=== PATIENT | female | born 1935 | race Asian ===

== ENCOUNTER 2016-11-28 09:48 | Emergency (ER) | payer MEDICARE, OTHER ==
[2016-11-28] MEDS ORDERED: ACETAMINOPHEN 325 MG TABLET PO ONE (10:18)
[2016-11-28] MEDS ORDERED: DIPH/PERTUSS(ACELL)/TETANUS VAC/PF 0.5 ML SYR (>=10YO) IM ONE (10:18)
--- NOTE | 2016-11-28 10:20 | ER Document Report ---
ED Medical Screen (RME) - General Chief Complaint: Fall Injury Stated Complaint: HEAD PAIN Time seen by provider: 10:16 Mode of Arrival: Ambulatory Information source: Patient Notes: 81-year-old female tripped on a curb hit her left face, nose and forehead causing a contusion and lacerations this am. She is complaining of neck pain and headache. does Not take anticoagulants. Consulted with Dr. Gutierrez for the CT scans. - Related Data Allergies/Adverse Reactions: aspirin [Aspirin] Adverse Reaction (Mild, Verified 11/28/16 10:14) dizzy codeine [Codeine] Adverse Reaction (Mild, Verified 11/28/16 10:14) n/v Past Medical History - Past Medical History Cardiac Medical History: Reports: Hx Hypertension Denies: Hx Coronary Artery Disease, Hx Heart Attack Pulmonary Medical History: Denies: Hx Asthma, Hx Bronchitis, Hx COPD, Hx Pneumonia Neurological Medical History: Denies: Hx Cerebrovascular Accident, Hx Seizures GI Medical History: Denies: Hx Hepatitis, Hx Hiatal Hernia, Hx Ulcer Musculoskeltal Medical History: Reports Hx Arthritis Infectious Medical History: Denies: Hx Hepatitis Past Surgical History: Reports: Hx Hysterectomy. Denies: Hx Mastectomy, Hx Open Heart Surgery, Hx Pacemaker - Immunizations Hx Diphtheria, Pertussis, Tetanus Vaccination: Yes - unsure
[2016-11-28] MEDS ORDERED: LIDOCAINE 1%/EPINEPHRINE INJ 20 ML VIAL INJ ONE (12:06)
--- NOTE | 2016-11-28 12:14 | ER Document Report ---
ED Fall - General Mode of Arrival: Ambulatory Information source: Patient TRAVEL OUTSIDE OF THE [place] IN LAST 30 DAYS: No - HPI Patient complains to provider of: Laceration to the forehead Occurred: Just prior to arrival Where: Outdoors Context: Tripped Associated symptoms: Other - see above. denies: Lost consciousness Location of injury/pain: Other - see above <VINCENZO SEGURA - Last Filed: 11/28/16 12:09> <MARY GALLARDO - Last Filed: 11/28/16 14:13> - General Chief Complaint: Fall Injury Stated Complaint: HEAD PAIN Notes: 81 year old female with history of hypertension and hyperlipidemia presents to the ED after tripping on a concrete parking block and hitting her head just prior to arrival. Patient denies loss of consciousness. Patient's surgical history includes a hysterectomy and appendectomy done over 40 years ago. (VINCENZO SEGURA) - Related data Allergies/Adverse Reactions: aspirin [Aspirin] Adverse Reaction (Mild, Verified 11/28/16 10:14) dizzy codeine [Codeine] Adverse Reaction (Mild, Verified 11/28/16 10:14) n/v Past Medical History - General Information source: Patient - Social History Smoking Status: Never Smoker Chew tobacco use (# tins/day): No Frequency of alcohol use: None Drug Abuse: None Family History: Reviewed & Not Pertinent Patient has suicidal ideation: No Patient has homicidal ideation: No - Past Medical History Cardiac Medical History: Reports: Hx Hypertension Musculoskeltal Medical History: Reports Hx Arthritis Past Surgical History: Reports: Hx Appendectomy, Hx Hysterectomy - Immunizations Hx Diphtheria, Pertussis, Tetanus Vaccination: Yes - unsure <VINCENZO SEGURA - Last Filed: 11/28/16 12:09> Review of Systems - Review of Systems Constitutional: No symptoms reported EENT: No symptoms reported Cardiovascular: No symptoms reported Respiratory: No symptoms reported Gastrointestinal: No symptoms reported Genitourinary: No symptoms reported Female Genitourinary: No symptoms reported Musculoskeletal: No symptoms reported Skin: See HPI, Other - Laceration to the left forehead and skin tear under the left eye Hematologic/Lymphatic: No symptoms reported Neurological/Psychological: No symptoms reported. denies: Lost consciousness -: Yes All other systems reviewed and negative <VINCENZO SEGURA - Last Filed: 11/28/16 12:09> Physical Exam - General General appearance: Alert In distress: None - HEENT Head: Other - 1.5 cm laceration to the left forehead and a skin abrasion underneath the left eye.. No: Normocephalic, Atraumatic Eyes: Normal Extraocular movements intact: Yes Pupils: PERRL - Respiratory Respiratory status: No respiratory distress Breath sounds: Normal - Cardiovascular Rhythm: Regular - Abdominal Inspection: Normal - Back Back: Normal - Extremities General upper extremity: Normal inspection, Normal ROM General lower extremity: Normal inspection, Normal ROM - Neurological Neuro grossly intact: Yes - Psychological Associated symptoms: Normal affect, Normal mood - Skin Skin Temperature: Warm Skin Moisture: Dry Skin Color: Normal <VINCENZO SEGURA - Last Filed: 11/28/16 12:09> - HEENT Head: Open wounds - There is a irregular 2 cm vertical crush injury laceration to the left forehead. Just below that but above the eyebrow is a similar half centimeter laceration. Under the left eyelid there is a 1.25 centimeter avulsion type laceration running horizontally below the eye lashes and does not appear to involve the lacrimal duct. <MARY GALLARDO - Last Filed: 11/28/16 14:13> - Vital signs Vitals: Temp Pulse Resp BP Pulse Ox 97.9 F 84 16 155/61 H 99 11/28/16 10:15 11/28/16 10:15 11/28/16 10:15 11/28/16 10:15 11/28/16 10:15 (VINCENZO SEGURA) (MARY GALLARDO) Course <VINCENZO SEGURA - Last Filed: 11/28/16 12:09> <MARY GALLARDO - Last Filed: 11/28/16 14:13> - Re-evaluation Re-evalutation: 11/28/16 14:11 PROCEEDURE: The 3 left sided facial wounds were prepped with chlorhexidine. There were anesthetized with a total of 4 males 1% lidocaine with epinephrine. The upper forehead wound was irrigated with 20 mL's of normal saline, slightly debrided, and closed with 4 4-0 nylon sutures. The lower forehead wound was irrigated with 10 mL normal saline, and closed with a single 4-0 nylon suture. The The transverse avulsion laceration under the lower eyelid, was approximated using 4 6-0 nylon sutures. (MARY GALLARDO) - Vital Signs Vital signs: Temp Pulse Resp BP Pulse Ox 98.3 F 92 18 169/77 H 95 11/28/16 13:46 11/28/16 13:46 11/28/16 13:46 11/28/16 13:46 11/28/16 13:46 (VINCENZO SEGURA) (MARY GALLARDO) Discharge <VINCENZO SEGURA - Last Filed: 11/28/16 12:09> <MARY GALLARDO - Last Filed: 11/28/16 14:13> - Discharge Clinical Impression: Fall Qualifiers: Encounter type: initial encounter Qualified Code(s): W19.XXXA - Unspecified fall, initial encounter Facial contusion Qualifiers: Encounter type: initial encounter Qualified Code(s): S00.83XA - Contusion of other part of head, initial encounter Facial laceration Qualifiers: Encounter type: initial encounter Qualified Code(s): S01.81XA - Laceration without foreign body of other part of head, initial encounter Condition: Stable Disposition: HOME, SELF-CARE Additional Instructions: Facial Laceration: A laceration on the face usually heals quickly. Our treatment goal will be to avoid an unsightly scar or stitch-hartley. Your cut has been closed with the best techniques to avoid scarring, but a great deal depends on how well you protect the laceration -- and on your inherited tendency to scar. As facial cuts are usually caused by a blunt injury, it's usually best to rest for a day to avoid swelling. Do not allow any bumping or rubbing of the area. Keep the stitches dry. Follow the treatment plan the doctor has discussed with you and DO NOT DELAY getting the stitches out. Once stitches are removed, continue to protect the area from trauma and sunlight (use a sunscreen) for about six months. If any signs of infection occur (swelling, redness, increasing tenderness, red streaks, tender lumps in the neck or near the ear on the side of the laceration, or fever), see the doctor immediately. KEEP THE WOUNDS CLEAN AND COVERED WITH NEOSPORIN OR BACITRACIN OINTMENT. USE ICE-PACKS TODAY TO REDUCE SWELLING. RETURN TO THE EMERGENCY ROOM WEDNESDAY FOR SUTURE REMOVAL. TAKE TYLENOL FOR PAIN IF NEEDED. RETURN TO THE EMERGENCY ROOM IF ANY NEW OR WORSENING SYMPTOMS. Referrals: WENDY PALOMINO MD [Primary Care Provider] - Follow up as needed Scribe Attestation: 11/28/16 13:40 I personally performed the services described in the documentation, reviewed and edited the documentation which was dictated to the scribe in my presence, and it accurately records my words and actions. (MARY GALLARDO) Scribe Documentation - Scribe Written by Kym:: Kym Cruz, 11/28/2016 12:14 acting as scribe for :: All <VINCENZO SEGURA - Last Filed: 11/28/16 12:09>
[2016-11-28 13:48] VITALS: BP 169/77
== END 2016-11-28 13:46 | disposition home or self-care (01) ==
LOC: ER 09:48
PROC: 0HQ1XZZ Repair Face Skin, External Approach (ICD-10-PCS; principal; 2016-11-28)
DX: S01.81XA Laceration without foreign body of other part of head, initial encounter (principal); S00.83XA Contusion of other part of head, initial encounter; W01.198A Fall on same level from slipping, tripping and stumbling with subsequent striking against other object, initial encounter; E78.00 Pure hypercholesterolemia, unspecified; I10 Essential (primary) hypertension; Z88.6 Allergy status to analgesic agent; Z90.710 Acquired absence of both cervix and uterus; Z23 Encounter for immunization
CPT/HCPCS: 99284; 90471; 70450; 70486; 72125; 90715; 12013; A9270; J3490

== ENCOUNTER 2016-12-04 08:30 | Emergency (ER) | payer MEDICARE, OTHER ==
--- NOTE | 2016-12-04 08:55 | ER Document Report ---
ED Suture/Wound Recheck - General Mode of Arrival: Ambulatory Information source: Patient TRAVEL OUTSIDE OF THE [place] IN LAST 30 DAYS: No - HPI Patient complains to provider of: Suture Removal Treated in ED (days ago): 6 - 11/28/2016 Previous ED treatment: Laceration repair Context: Injury - Fall Symptoms since procedure: No complaints - General Chief Complaint: Suture Removal Stated Complaint: SUTURE REMOVAL Notes: Patient is an 81-year-old female presenting to the emergency department for suture removal. Patient was seen here last week on 11/28/2016 when she fell and hit her head. Patient has no new complaints and states that she feels that her wounds are healing well. (IVAN BLOOM) - Related Data Allergies/Adverse Reactions: aspirin [Aspirin] Adverse Reaction (Mild, Verified 12/04/16 08:45) dizzy codeine [Codeine] Adverse Reaction (Mild, Verified 12/04/16 08:45) n/v Past Medical History - General Information source: Patient - Social History Smoking Status: Current Every Day Smoker Chew tobacco use (# tins/day): No Frequency of alcohol use: Social Drug Abuse: None Family History: Reviewed & Not Pertinent Patient has suicidal ideation: No Patient has homicidal ideation: No - Past Medical History Cardiac Medical History: Reports: Hx Hypercholesterolemia, Hx Hypertension Denies: Hx Coronary Artery Disease, Hx Heart Attack Pulmonary Medical History: Denies: Hx COPD GI Medical History: Denies: Hx Ulcer Musculoskeltal Medical History: Reports Hx Arthritis Infectious Medical History: Denies: Hx Hepatitis Past Surgical History: Reports: Hx Appendectomy, Hx Hysterectomy. Denies: Hx Mastectomy, Hx Open Heart Surgery, Hx Pacemaker - Immunizations Hx Diphtheria, Pertussis, Tetanus Vaccination: Yes - unsure Review of Systems - Review of Systems Constitutional: No symptoms reported EENT: No symptoms reported Cardiovascular: No symptoms reported Respiratory: No symptoms reported Gastrointestinal: No symptoms reported Genitourinary: No symptoms reported Female Genitourinary: No symptoms reported Musculoskeletal: No symptoms reported Skin: No symptoms reported Hematologic/Lymphatic: No symptoms reported Neurological/Psychological: No symptoms reported -: Yes All other systems reviewed and negative Physical Exam - General General appearance: Appears well, Alert - HEENT Head: Normocephalic, Other - All wounds are closed with sutures and healing well : There is a irregular 2 cm vertical crush injury laceration to the left forehead. Just below that but above the eyebrow is a similar half centimeter laceration. Under the left eyelid there is a 1.25 centimeter avulsion type laceration running horizontally below the eye lashes and does not appear to involve the lacrimal duct. Eyes: Normal Pupils: PERRL - Respiratory Respiratory status: No respiratory distress - Cardiovascular Rhythm: Regular - Abdominal Inspection: Normal - Back Back: Normal - Extremities General upper extremity: Normal inspection General lower extremity: Normal inspection - Neurological Neuro grossly intact: Yes Cognition: Normal Elsa Coma Scale Eye Opening: Spontaneous [place] Coma Scale Verbal: Oriented [place] Coma Scale Motor: Obeys Commands Elsa Coma Scale Total: 15 Speech: Normal - Psychological Associated symptoms: Normal affect, Normal mood - Skin Skin Temperature: Warm Skin Moisture: Dry Skin Color: Normal - Vital signs Vitals: Temp Pulse Resp BP Pulse Ox 98.7 F 82 16 139/60 H 99 12/04/16 08:43 12/04/16 08:43 12/04/16 08:43 12/04/16 08:43 12/04/16 08:43 (MARY GALLARDO) (IVAN BLOOM) Discharge - Discharge Clinical Impression: Visit for suture removal Disposition: HOME, SELF-CARE Additional Instructions: RETURN IF ANY PROBLEMS. Scribe Attestation: 12/04/16 08:57 I personally performed the services described in the documentation, reviewed and edited the documentation which was dictated to the scribe in my presence, and it accurately records my words and actions. (MARY GALLARDO) Scribe Documentation - Scribe Written by Scrandrei:: Ivan Bloom 12/04/2016 0855 acting as scribe for :: All
[2016-12-04 09:33] VITALS: BP 104/63
== END 2016-12-04 09:34 | disposition home or self-care (01) ==
LOC: ER 08:30
DX: S01.81XD Laceration without foreign body of other part of head, subsequent encounter (principal); X58.XXXD Exposure to other specified factors, subsequent encounter; F17.200 Nicotine dependence, unspecified, uncomplicated; I10 Essential (primary) hypertension

== ENCOUNTER 2017-05-18 03:58 | Emergency (ER) | payer MEDICARE, OTHER ==
--- NOTE | 2017-05-18 05:01 | ER Document Report ---
Doctor's Note Notes: 05/18/17 05:00 I performed a quick triage evaluation the patient. Patient is a pleasant 81- year-old female who presents with complaint of right-sided chest pain. She also some pain into her right shoulder. History is mainly given by the who is at bedside. Patient had a fall Wednesday night. She has some scrapes from the fall. She was not having pain until this morning around 2 AM when she started complaining of pain in the right side of her chest. thinks it is related to fall being that it is over the area of the right side where she fell; however, she did not start having pain until now therefore I will order some cardiac labs. Initial EKG does not show any acute concerning changes. On exam patient does have some pain to palpation of the right-sided rib cage. There is no bruising or swelling to the rib cage. Patient does have some abrasions to the right elbow. I will x-ray the elbow as well.
[2017-05-18 05:36] LABS: ABSOLUTE LYMPHOCYTES (AUTO) 0.7 10^3/uL (0.5-4.7); ABSOLUTE MONOCYTES (AUTO) 0.5 10^3/uL (0.1-1.4); ABSOLUTE NEUT (AUTO) 6.6 10^3/uL (1.7-8.2); BASOPHILS % (AUTO) 0.5 % (0-2); EOSINOPHILS % (AUTO) 0.6 % (0-6); HEMATOCRIT 50.2 % (36.0-47.0); HEMOGLOBIN 16.8 g/dL (12.0-15.5); HGB HCT DIFFERENCE 0.2; LYMPHOCYTES % (AUTO) 8.5 % (13-45); MEAN CORPUSCULAR HGB CONC 33.5 g/dL (32.0-36.0); MEAN CORPUSCULAR VOLUME 95 fl (80-97); MONOCYTES % (AUTO) 6.1 % (3-13); RED BLOOD COUNT 5.26 10^6/uL (3.72-5.28); RED CELL DISTRIBUTION WIDTH 14.1 % (11.5-14.0); SEGMENTED NEUTROPHILS % (AUTO) 84.3 % (42-78); WHITE BLOOD COUNT 7.8 10^3/uL (4.0-10.5)
[2017-05-18 05:53] LABS: ALANINE AMINOTRANSFERASE 26 U/L (9-52); ALBUMIN 4.2 g/dL (3.5-5.0); ALKALINE PHOSPHATASE 68 U/L (38-126); ANION GAP 11 (5-19); ASPARTATE AMINO TRANSFERASE 46 U/L (14-36); BILIRUBIN,DIRECT 0.4 mg/dL (0.0-0.4); BILIRUBIN,TOTAL 0.9 mg/dL (0.2-1.3); BLOOD UREA NITROGEN 14 mg/dL (7-20); CALCIUM 9.2 mg/dL (8.4-10.2); CARBON DIOXIDE 24 mmol/L (22-30); CHLORIDE 90 mmol/L (98-107); CREATINE KINASE 100 U/L (30-135); CREATININE RESULT 0.54 mg/dL (0.52-1.25); GLUCOSE 122 mg/dL (75-110); POTASSIUM 3.4 mmol/L (3.6-5.0); SODIUM 124.6 mmol/L (137-145)
[2017-05-18 06:05] LABS: CREATINE KINASE MB 1.17 ng/mL (<4.55)
[2017-05-18 06:06] LABS: TROPONIN I < 0.012 ng/mL
--- NOTE | 2017-05-18 06:21 | RADIOLOGY REPORT (SQ) ---
EXAM DESCRIPTION: ELBOW RIGHT AP/LAT COMPLETED DATE/TIME: 05/18/2017 6:06 am REASON FOR STUDY: trauma COMPARISON: None. NUMBER OF VIEWS: Four views. TECHNIQUE: AP, lateral, and both oblique radiographic images acquired of the right elbow. LIMITATIONS: None. FINDINGS: MINERALIZATION: Normal. BONES: Transverse lucency without cortical disruption and without displacement of the distal humerus may indicate in nondisplaced fracture or artifact. Small osteophyte of the coronoid process of the r ight ulnar olecranon. Moderate swelling -edema and posterior to the right distal humerus. JOINT: No effusion. SOFT TISSUES: No soft tissue swelling. No foreign body. OTHER: No other significant finding. IMPRESSION: Possible nondisplaced fracture of the right distal humerus. Consider CT or MRI correlat ion as clinically warranted. TECHNICAL DOCUMENTATION: JOB ID: [id number] [employer]- All Rights Reserved
--- NOTE | 2017-05-18 06:25 | RADIOLOGY REPORT (SQ) ---
EXAM DESCRIPTION: RIBS RIGHT W/PA CHEST COMPLETED DATE/TIME: 05/18/2017 6:06 am REASON FOR STUDY: trauma COMPARISON: None. TECHNIQUE: Frontal view of the chest and additional views of the right ribs acquired. NUMBER OF VIEWS: Four view. LIMITATIONS: None. FINDINGS: FRONTAL CXR: No pneumothorax. No pleural effusion. No atelectasis or infiltrates. RIBS: No displaced rib fractures. No lytic or blastic bony lesions. Mild deformity of the right 2nd posterolateral rib. OTHER: Atherosclerosis. Mild interstitial markings. Minimal left basilar atelectasis or scar. Mild vertebral height loss of multiple mid and lower thoracic levels. IMPRESSION: NO PNEUMOTHORAX. NO DISPLACED RIB FRACTURES. COMMENT: SITE OF TRAUMA/COMPLAINT MARKED/STAMP COMPLETED: YES. TECHNICAL DOCUMENTATION: JOB ID: [id number] [employer]- All Rights Reserved
[2017-05-18] MEDS ORDERED: NORMAL SALINE 500 ML IV ONE (06:35)
[2017-05-18] MEDS ORDERED: LIDOCAINE 5% (700 MG) TRANSDERMAL ADH..PATCH TP ONE (06:35)
--- NOTE | 2017-05-18 08:53 | RADIOLOGY REPORT (SQ) ---
EXAM DESCRIPTION: CT RT UPPER EXTREMITY WITHOUT COMPLETED DATE/TIME: 05/18/2017 8:23 am REASON FOR STUDY: eval findings on elbow xray COMPARISON: X-ray dated 05/18/2017. TECHNIQUE: Axial imaging performed through the right elbow with reformatted coronal and sagittal leonila ging windowed for bone and soft tissues. Images saved to PACS. 3D IMAGING: Were 3D images as MIP, SSD, or volume rendering performed at the work station? Yes. All CT scanners at this facility use dose modulation, iterative reconstruction, and/or weight based d osing when appropriate to reduce radiation dose to as low as reasonably achievable (ALARA). [facility]: Dose Right [facility]: CareDose [facility]: Dose Right [facility]: Teradose 4D [facility]: [employer] LIMITATIONS: None. RADIATION DOSE: Up-to-date CT equipment and radiation dose reduction techniques were employed. CTDIv ol: 2.6 mGy. DLP: 48 mGy-cm. mGy. FINDINGS: SOFT TISSUES: No obvious swelling or foreign body. BONES: No acute fracture. No dislocation. MINERALIZATION: Normal. OTHER: No other significant finding. IMPRESSION: NO ACUTE OR SIGNIFICANT FINDING. FINDING ON THE PREVIOUS X-RAY IS ARTIFACT DUE TO OVERL APPING STRUCTURES. TECHNICAL DOCUMENTATION: JOB ID: [id number] Quality ID # [id number]: Final reports with documentation of one or more dose reduction techniques (e.g., Au tomated exposure control, adjustment of the mA and/or kV according to patient size, use of iterative reconstruction technique) 2010 [employer]- All Rights Reserved
[2017-05-18 09:24] VITALS: BP 143/67
[2017-05-18 09:30] LABS: ANION GAP 10 (5-19); BLOOD UREA NITROGEN 12 mg/dL (7-20); CALCIUM 8.7 mg/dL (8.4-10.2); CARBON DIOXIDE 24 mmol/L (22-30); CHLORIDE 91 mmol/L (98-107); CREATININE RESULT 0.48 mg/dL (0.52-1.25); GLUCOSE 113 mg/dL (75-110); POTASSIUM 3.6 mmol/L (3.6-5.0); SODIUM 124.8 mmol/L (137-145)
--- NOTE | 2017-05-18 09:44 | ER Document Report ---
ED General - General Chief Complaint: Chest Pain Stated Complaint: FALL/CHEST PAIN Time Seen by Provider: 05/18/17 04:59 TRAVEL OUTSIDE OF THE [place] IN LAST 30 DAYS: No - HPI Patient complains to provider of: Right sided chest pain Notes: Patient coming in for evaluation of right-sided chest pain elbow pain. Patient had a fall Wednesday prior to arrival. Patient states this was a mechanical fall and tripped over her feet but no loss of consciousness no head trauma patient does not have any pain until earlier this morning in the right side of the chest. Patient also does have multiple small abrasions to right upper extremities are covered by Band-Aids. Denies any changes or pain associated with these. Patient at this time denies any elbow pain patient also denies any chest pain patient is resting comfortably no signs of obvious distress. Denies fevers chills nausea vomiting diarrhea abdominal pain - Related Data Allergies/Adverse Reactions: aspirin [Aspirin] Adverse Reaction (Mild, Verified 12/04/16 08:45) dizzy codeine [Codeine] Adverse Reaction (Mild, Verified 12/04/16 08:45) n/v Past Medical History - Social History Smoking Status: Unknown if Ever Smoked Frequency of alcohol use: None Drug Abuse: None Family History: Reviewed & Not Pertinent Patient has suicidal ideation: No Patient has homicidal ideation: No - Past Medical History Cardiac Medical History: Reports: Hx Hypercholesterolemia, Hx Hypertension Denies: Hx Coronary Artery Disease, Hx Heart Attack Pulmonary Medical History: Denies: Hx Asthma, Hx Bronchitis, Hx COPD, Hx Pneumonia Neurological Medical History: Denies: Hx Cerebrovascular Accident, Hx Seizures Renal/ Medical History: Denies: Hx Peritoneal Dialysis GI Medical History: Denies: Hx Hepatitis, Hx Hiatal Hernia, Hx Ulcer Musculoskeltal Medical History: Reports Hx Arthritis Infectious Medical History: Denies: Hx Hepatitis Past Surgical History: Reports: Hx Appendectomy, Hx Hysterectomy. Denies: Hx Mastectomy, Hx Open Heart Surgery, Hx Pacemaker - Immunizations Hx Diphtheria, Pertussis, Tetanus Vaccination: Yes - unsure Review of Systems - Review of Systems Constitutional: No symptoms reported EENT: No symptoms reported Cardiovascular: Chest pain - Right-sided Respiratory: No symptoms reported Gastrointestinal: No symptoms reported Genitourinary: No symptoms reported Female Genitourinary: No symptoms reported Musculoskeletal: Other - Elbow pain Skin: No symptoms reported Hematologic/Lymphatic: No symptoms reported Neurological/Psychological: No symptoms reported Physical Exam - Vital signs Vitals: Temp Pulse Resp BP Pulse Ox 98 F 80 18 154/58 H 94 05/18/17 04:00 05/18/17 04:00 05/18/17 04:00 05/18/17 04:00 05/18/17 04:00 Interpretation: Normal - General General appearance: Appears well, Alert - HEENT Head: Normocephalic, Atraumatic Eyes: Normal Pupils: PERRL - Respiratory Respiratory status: No respiratory distress Chest status: Tender - Tenderness to palpation of the right upper chest reproduces patient's pain. Breath sounds: Normal Chest palpation: Normal - Cardiovascular Rhythm: Regular Heart sounds: Normal auscultation Murmur: No - Abdominal Inspection: Normal Distension: No distension Bowel sounds: Normal Tenderness: Nontender Organomegaly: No organomegaly - Back Back: Normal, Nontender - Extremities General upper extremity: Normal inspection, Nontender, Normal color, Normal ROM , Normal temperature, Other - Patient with multiple skin tears of the right olecranon process no signs of infection. General lower extremity: Normal inspection, Nontender, Normal color, Normal ROM , Normal temperature, Normal weight bearing. No: Briseida's sign - Neurological Neuro grossly intact: Yes Cognition: Normal Orientation: AAOx4 [place] Coma Scale Eye Opening: Spontaneous Elsa Coma Scale Verbal: Oriented [place] Coma Scale Motor: Obeys Commands Elsa Coma Scale Total: 15 Speech: Normal Motor strength normal: LUE, RUE, LLE, RLE Sensory: Normal - Psychological Associated symptoms: Normal affect, Normal mood - Skin Skin Temperature: Warm Skin Moisture: Dry Skin Color: Normal Course - Re-evaluation Re-evalutation: 05/18/17 09:44 Patient does admit to drinking alcohol just prior to arrival. Patient's sodium is 124. Patient was given some normal saline with a slight increase in her sodium. Otherwise patient able to ambulate at this time does not seem to be symptomatic. 05/18/17 09:45 05/18/17 10:24 The patient has atypical chest pain as the patient's chest pain is not suggestive of pulmonary embolus, cardiac ischemia, aortic dissection, or other serious etiology. Given the extremely low risk of these diagnoses further testing and evaluation for these possibilities does not appear to be indicated at this time. The patient has been instructed to return if the symptoms worsen or change in any way. - Vital Signs Vital signs: Temp Pulse Resp BP Pulse Ox 98.1 F 80 20 143/67 H 96 05/18/17 04:01 05/18/17 04:01 05/18/17 10:00 05/18/17 08:45 05/18/17 10:00 - Laboratory Result Diagrams: 05/18/17 05:14 05/18/17 08:38 Laboratory results interpreted by me: 05/18/17 05/18/17 05/18/17 05:14 05:14 08:38 Hgb 16.8 H Hct 50.2 H RDW 14.1 H Seg Neutrophils % 84.3 H Lymphocytes % 8.5 L Sodium 124.6 L 124.8 L Potassium 3.4 L Chloride 90 L 91 L Creatinine 0.48 L Glucose 122 H 113 H AST 46 H Discharge - Discharge Clinical Impression: Chest wall contusion Qualifiers: Encounter type: initial encounter Laterality: right Qualified Code(s): S20.211A - Contusion of right front wall of thorax, initial encounter Skin tear of right elbow without complication Qualifiers: Encounter type: initial encounter Qualified Code(s): S51.011A - Laceration without foreign body of right elbow, initial encounter Condition: Good Disposition: HOME, SELF-CARE Instructions: Chest Wall Pain ([facility]), Skin Tear ([facility]) Additional Instructions: Your lab work today does show a low sodium. At this time he does not seem to have any symptoms because a low sodium would recommend to limit your alcohol consumption and to eat a normal healthy diet. Return to the ER for any concerning issues follow-up with your doctor as needed. Referrals: WENDY PALOMINO MD [Primary Care Provider] - Follow up as needed
--- NOTE | 2017-05-18 19:06 | EKG REPORT ---
SEVERITY:- ABNORMAL ECG - SINUS RHYTHM PROBABLE LEFT ATRIAL ABNORMALITY NONSPECIFIC T ABNORMALITIES, ANTERIOR LEADS : Confirmed by: Avelino Parks MD 18-May-2017 19:05:50
== END 2017-05-18 10:11 | disposition home or self-care (01) ==
LOC: ER 03:58
DX: S20.211A Contusion of right front wall of thorax, initial encounter (principal); S51.011A Laceration without foreign body of right elbow, initial encounter; W01.0XXA Fall on same level from slipping, tripping and stumbling without subsequent striking against object, initial encounter; E78.00 Pure hypercholesterolemia, unspecified; I10 Essential (primary) hypertension; Z90.710 Acquired absence of both cervix and uterus; Z88.6 Allergy status to analgesic agent
CPT/HCPCS: 93005; 99285; 96360; 36415; 82553; 82550; 85025; 80048; 80053; 84484; 73070; 71101; 73200; 93010; J7040

== ENCOUNTER 2018-01-07 10:22 | Inpatient (IN) | payer MEDICARE, OTHER ==
--- NOTE | 2018-01-07 12:00 | ER Document Report ---
ED Medical Screen (RME) - General Mode of Arrival: Wheelchair Information source: Relative TRAVEL OUTSIDE OF THE [place] IN LAST 30 DAYS: No <FRANCO SAMUELS - Last Filed: 01/07/18 11:58> <MARJORIE ANDERSON - Last Filed: 01/07/18 14:15> - General Chief Complaint: Low Blood Pressure Stated Complaint: LOW BLOOD PRESSURE Time Seen by Provider: 01/07/18 11:50 Notes: 82-year-old female brought in by EMS because of low blood pressure in the setting of a recent infection. EMS got a blood pressure of 120/80. Patient is accompanied by her states that she does have a history of hypertension and some dementia. She states that she has been getting progressive weakness and has not ambulated since mid November. She was evaluated by her primary care physician (Dr. Devries) yesterday who put her on an antibiotic for cough and chest congestion. Home health aid checked her this morning and found a blood pressure in the 80s and EMS was called. (FRANCO SAMUELS) - Related Data Allergies/Adverse Reactions: aspirin [Aspirin] Adverse Reaction (Mild, Verified 01/07/18 11:46) dizzy codeine [Codeine] Adverse Reaction (Mild, Verified 01/07/18 11:46) n/v Past Medical History - Social History Chew tobacco use (# tins/day): No Frequency of alcohol use: None Drug Abuse: None - Past Medical History Cardiac Medical History: Reports: Hx Hypercholesterolemia, Hx Hypertension Denies: Hx Coronary Artery Disease, Hx Heart Attack Pulmonary Medical History: Denies: Hx Asthma, Hx Bronchitis, Hx COPD, Hx Pneumonia Neurological Medical History: Denies: Hx Cerebrovascular Accident, Hx Seizures Renal/ Medical History: Denies: Hx Peritoneal Dialysis GI Medical History: Denies: Hx Hepatitis, Hx Hiatal Hernia, Hx Ulcer Musculoskeltal Medical History: Reports Hx Arthritis Infectious Medical History: Denies: Hx Hepatitis Past Surgical History: Reports: Hx Appendectomy, Hx Hysterectomy. Denies: Hx Mastectomy, Hx Open Heart Surgery, Hx Pacemaker - Immunizations Hx Diphtheria, Pertussis, Tetanus Vaccination: Yes - unsure <FRANCO SAMUELS - Last Filed: 01/07/18 11:58> - Vital signs Vitals: Temp Pulse Resp BP Pulse Ox 98.9 F 99 24 H 115/52 L 94 01/07/18 10:34 01/07/18 10:34 01/07/18 10:34 01/07/18 10:34 01/07/18 10:34 Course - Laboratory Result Diagrams: 01/07/18 13:46 01/07/18 13:46 <MARJORIE ANDERSON - Last Filed: 01/07/18 14:15> - Vital Signs Vital signs: Temp Pulse Resp BP Pulse Ox 98.9 F 99 24 H 115/52 L 94 01/07/18 10:34 01/07/18 10:34 01/07/18 10:34 01/07/18 10:34 01/07/18 10:34 - Laboratory Laboratory results interpreted by me: 01/07/18 01/07/18 13:46 13:46 WBC 13.4 H Hgb 11.7 L Hct 35.5 L RDW 16.7 H Plt Count 529 H Chloride 108 H Carbon Dioxide 21 L BUN 21 H Est GFR (Non-Af Amer) 51 L Glucose 134 H Direct Bilirubin 0.5 H
--- NOTE | 2018-01-07 13:01 | RADIOLOGY REPORT (SQ) ---
EXAM DESCRIPTION: CHEST SINGLE VIEW COMPLETED DATE/TIME: 01/07/2018 12:50 pm REASON FOR STUDY: weakness COMPARISON: March 2008 EXAM PARAMETERS: NUMBER OF VIEWS: One view. TECHNIQUE: Single frontal radiographic view of the chest acquired. RADIATION DOSE: NA LIMITATIONS: None. FINDINGS: LUNGS AND PLEURA: No opacities, masses or pneumothorax. No pleural effusion. MEDIASTINUM AND HILAR STRUCTURES: There is some prominence of the superior mediastinum which may be i n part related to the lordotic projection. HEART AND VASCULAR STRUCTURES: Cardiac silhouette is mildly enlarged. Tortuous calcified thoracic ao rta is identified. BONES: No acute findings. HARDWARE: None in the chest. OTHER: No other significant finding. IMPRESSION: NO ACUTE RADIOGRAPHIC FINDING IN THE CHEST. TECHNICAL DOCUMENTATION: JOB ID: [id number] [employer]- All Rights Reserved Reading location - IP/workstation name: [email or web address]
[2018-01-07 13:55] LABS: HEMATOCRIT 35.5 % (36.0-47.0); HEMOGLOBIN 11.7 g/dL (12.0-15.5); MEAN CORPUSCULAR HEMOGLOBIN 31.1 pg (27.0-33.4); MEAN CORPUSCULAR HGB CONC 33.1 g/dL (32.0-36.0); MEAN CORPUSCULAR VOLUME 94 fl (80-97); PLATELET COUNT 529 10^3/uL (150-450); RED BLOOD COUNT 3.77 10^6/uL (3.72-5.28); RED CELL DISTRIBUTION WIDTH 16.7 % (11.5-14.0); WHITE BLOOD COUNT 13.4 10^3/uL (4.0-10.5)
[2018-01-07 14:10] LABS: ALANINE AMINOTRANSFERASE 32 U/L (9-52); ALBUMIN 3.7 g/dL (3.5-5.0); ALKALINE PHOSPHATASE 79 U/L (38-126); ANION GAP 10 (5-19); ASPARTATE AMINO TRANSFERASE 22 U/L (14-36); BILIRUBIN,DIRECT 0.5 mg/dL (0.0-0.4); BILIRUBIN,TOTAL 0.5 mg/dL (0.2-1.3); BLOOD UREA NITROGEN 21 mg/dL (7-20); CALCIUM 9.4 mg/dL (8.4-10.2); CARBON DIOXIDE 21 mmol/L (22-30); CHLORIDE 108 mmol/L (98-107); GLUCOSE 134 mg/dL (75-110); POTASSIUM 4.6 mmol/L (3.6-5.0); TOTAL PROTEIN 7.4 g/dL (6.3-8.2)
[2018-01-07] MEDS ORDERED: RINGERS SOLUTION,LACTATED 1,000 ML IV ONE (14:14)
[2018-01-07 14:20] LABS: ABSOLUTE LYMPHOCYTES# (MANUAL) 2.3 10^3/uL (0.5-4.7); ABSOLUTE MONOCYTES # (MANUAL) 0.8 10^3/uL (0.1-1.4); ABSOLUTE NEUTROPHILS# (MANUAL) 10.2 10^3/uL (1.7-8.2); BAND NEUTROPHILS % (MANUAL) 2 % (3-5); BASOPHILS % (MANUAL) 0 % (0-2); EOSINOPHILS % (MANUAL) 1 % (0-6); LYMPHOCYTES % (MANUAL) 17 % (13-45); METAMYELOCYTES % (MANUAL) 1 % (0); MONOCYTES % (MANUAL) 6 % (3-13); SEGMENTED NEUTROPHILS % (MAN) 72 % (42-78); TOTAL CELLS COUNTED 100
[2018-01-07 14:22] LABS: PLATELET COMMENT INCREASED; TOXIC GRANULATION 1+; TOXIC VACUOLATION PRESENT
[2018-01-07 14:22] LABS: APPEARANCE,URINE SLIGHTLY-CLOUDY; BILIRUBIN,URINE NEGATIVE (NEGATIVE); COLOR,URINE YELLOW; GLUCOSE, URINE NEGATIVE (NEGATIVE); KETONES,URINE NEGATIVE (NEGATIVE); LEUKOCYTE ESTERASE,URINE LARGE (NEGATIVE); NITRITE,URINE NEGATIVE (NEGATIVE); PROTEIN,URINE 100 mg/dL (NEGATIVE); URINE SPECIFIC GRAVITY 1.013; UROBILINOGEN,URINE NEGATIVE mg/dL (<2.0)
[2018-01-07 14:23] LABS: ANISOCYTOSIS 1+; HYPOCHROMASIA SLIGHT
[2018-01-07 14:29] LABS: MYELOCYTES % (MANUAL) 1 % (0)
[2018-01-07] MEDS ORDERED: CEFTRIAXONE 1 GM/D5W RTU 1 GM/50 ML RTUPB IV ONE (14:44)
--- NOTE | 2018-01-07 14:44 | ER Document Report ---
ED General - General Chief Complaint: Low Blood Pressure Stated Complaint: LOW BLOOD PRESSURE Time Seen by Provider: 01/07/18 11:50 Mode of Arrival: Wheelchair Notes: 82-year-old female to the emergency department for evaluation of persistent weakness, questionable pneumonia, questionable hypotension. Apparently was diagnosed with pneumonia clinically. Started on antibiotics. Continue to have increased weakness. Questionable hypotension at home. Sent to the emergency department for evaluation. Patient denies any complaints at this time. Patient taken care of by her . TRAVEL OUTSIDE OF THE [place] IN LAST 30 DAYS: No - HPI Onset: Yesterday Onset/Duration: Gradual, Worse - Related Data Allergies/Adverse Reactions: aspirin [Aspirin] Adverse Reaction (Mild, Verified 01/07/18 11:46) dizzy codeine [Codeine] Adverse Reaction (Mild, Verified 01/07/18 11:46) n/v Past Medical History - General Information source: Relative - Social History Smoking Status: Unknown if Ever Smoked Chew tobacco use (# tins/day): No Frequency of alcohol use: None Drug Abuse: None Lives with: Spouse/Significant other Family History: Reviewed & Not Pertinent Patient has suicidal ideation: No Patient has homicidal ideation: No - Past Medical History Cardiac Medical History: Reports: Hx Hypercholesterolemia, Hx Hypertension Denies: Hx Coronary Artery Disease, Hx Heart Attack Pulmonary Medical History: Denies: Hx Asthma, Hx Bronchitis, Hx COPD, Hx Pneumonia Neurological Medical History: Denies: Hx Cerebrovascular Accident, Hx Seizures Renal/ Medical History: Denies: Hx Peritoneal Dialysis GI Medical History: Denies: Hx Hepatitis, Hx Hiatal Hernia, Hx Ulcer Musculoskeltal Medical History: Reports Hx Arthritis Infectious Medical History: Denies: Hx Hepatitis Past Surgical History: Reports: Hx Appendectomy, Hx Hysterectomy. Denies: Hx Mastectomy, Hx Open Heart Surgery, Hx Pacemaker - Immunizations Hx Diphtheria, Pertussis, Tetanus Vaccination: Yes - unsure Review of Systems - Review of Systems Constitutional: Malaise, Weakness. denies: Fever EENT: No symptoms reported Cardiovascular: Palpitations, Other - Hypotension Respiratory: Cough. denies: Hemoptysis, Short of breath, Wheezing Gastrointestinal: denies: Abdominal pain, Diarrhea, Nausea, Vomiting Musculoskeletal: denies: Back pain, Joint pain, Muscle pain Skin: Dryness. denies: Lesions, Rash Hematologic/Lymphatic: denies: Anemia, Blood clots, Easy bleeding, Easy bruising Neurological/Psychological: Confusion, Dementia, Weakness. denies: Depression, Numbness Physical Exam - Vital signs Vitals: Temp Pulse Resp BP Pulse Ox 98.9 F 99 24 H 115/52 L 94 01/07/18 10:34 01/07/18 10:34 01/07/18 10:34 01/07/18 10:34 01/07/18 10:34 Interpretation: Normal - General General appearance: Appears well, Alert - HEENT Head: Normocephalic, Atraumatic Eyes: Normal Pupils: PERRL Mucous membranes: Dry - Respiratory Respiratory status: No respiratory distress Chest status: Nontender Breath sounds: Nonproductive cough Chest palpation: Normal - Cardiovascular Rhythm: Regular Heart sounds: Normal auscultation Murmur: No - Abdominal Inspection: Normal Distension: No distension Bowel sounds: Normal Tenderness: Nontender Organomegaly: No organomegaly - Back Back: Normal, Nontender - Extremities General upper extremity: Normal inspection, Nontender, Normal color, Normal ROM , Normal temperature General lower extremity: Normal inspection, Nontender, Normal color, Normal ROM , Normal temperature, Normal weight bearing. No: Briseida's sign - Neurological Neuro grossly intact: Yes Cognition: Confused, Short term memory loss Elsa Coma Scale Eye Opening: Spontaneous Elsa Coma Scale Verbal: Confused Barney Coma Scale Motor: Obeys Commands Elsa Coma Scale Total: 14 Speech: Normal Motor strength normal: LUE, RUE, LLE, RLE Sensory: Normal - Psychological Associated symptoms: Normal affect, Normal mood - Skin Skin Temperature: Warm Skin Moisture: Dry Skin Color: Normal Course - Re-evaluation Re-evalutation: 01/07/18 14:49 Patient with possible pneumonia based on physical exam as determined by her primary care provider. Was started on Levaquin but uncertain whether or not patient actually got a dose yet. Does have a mild UTI. Will culture. Is pretty dehydrated with a slightly elevated WBC count. Will hydrate, give IV antibiotics. Consulted Dr. Wendy Palomino MD. Will admit to the [facility] floor at this time for hydration, antibiotics, treatment of UTI and reassessment. - Vital Signs Vital signs: Temp Pulse Resp BP Pulse Ox 98.9 F 99 24 H 115/52 L 94 01/07/18 10:34 01/07/18 10:34 01/07/18 10:34 01/07/18 10:34 01/07/18 10:34 - Laboratory Result Diagrams: 01/07/18 13:46 01/07/18 13:46 Laboratory results interpreted by me: 01/07/18 01/07/18 01/07/18 13:46 13:46 14:08 WBC 13.4 H Hgb 11.7 L Hct 35.5 L RDW 16.7 H Plt Count 529 H Band Neutrophils % 2 L Metamyelocytes % 1 H Myelocytes % 1 H Abs Neuts (Manual) 10.2 H Chloride 108 H Carbon Dioxide 21 L BUN 21 H Est GFR (Non-Af Amer) 51 L Glucose 134 H Direct Bilirubin 0.5 H Urine Protein 100 H Ur Leukocyte Esterase LARGE H Discharge - Discharge Clinical Impression: Dehydration Urinary tract infection Qualifiers: Urinary tract infection type: site unspecified Hematuria presence: without hematuria Qualified Code(s): N39.0 - Urinary tract infection, site not specified Condition: Good Disposition: ADMITTED INPATIENT Admitting Provider: [facility] Unit Admitted: Medical Floor Referrals: WENDY PALOMINO MD [Primary Care Provider] - Follow up as needed
[2018-01-07] MEDS ORDERED: AZITHROMYCIN INJ 500 MG VIAL IV ONE (14:52)
[2018-01-07] MEDS ORDERED: CEFTRIAXONE INJ 1000 MG VIAL IV ONE (16:06)
--- NOTE | 2018-01-07 16:20 | PDOC H&P ---
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 3w bedbound. 3d days cough. 2d ago visiting nurse heard rales requested antibiotic. I sent levaquin. She had 2 doses. BP88 according to PT today. EMS brought here. BP 115 here. Past Medical History Cardiac Medical History: Reports: Hyperlipidema, Hypertension Denies: Coronary Artery Disease, Myocardial Infarction Pulmonary Medical History: Denies: Asthma, Bronchitis, Chronic Obstructive Pulmonary Disease (COPD), Pneumonia Neurological Medical History: Denies: Seizures Endocrine Medical History: Reports: None Renal/ Medical History: Reports: None Malignancy Medical History: Reports: None GI Medical History: Reports: None Denies: Hepatitis, Hiatal Hernia Musculoskeltal Medical History: Reports: Arthritis Psychiatric Medical History: Reports: Dementia Traumatic Medical History: Reports: None Hematology: Denies: Anemia, Sickle Cell Disease Infectious Medical History: Reports: None Past Surgical History Past Surgical History: Reports: Appendectomy, Hysterectomy Denies: Amputation, Mastectomy, Pacemaker Social History Information Source: Dr. Saldaña Lives with: Spouse/Significant other Smoking Status: Former Smoker Number of Years Smokin Last Time Smoked: 2017 Frequency of Alcohol Use: None Hx Recreational Drug Use: No Hx Prescription Drug Abuse: No - Advance Directive Resuscitation Status: Full Code Family History Family History: Hypertension Parental Family History Reviewed: Yes Children Family History Reviewed: Yes Sibling(s) Family History Reviewed.: Yes Medication/Allergy Home Medications: Amlodipine Besylate [Norvasc 10 mg Tablet] 10 mg PO DAILY 01/07/18 Atorvastatin Calcium [Lipitor 20 mg Tablet] 20 mg PO QHS 01/07/18 Hydrochlorothiazide [Hydrodiuril 25 mg Tablet] 25 mg PO QAM 01/07/18 Levofloxacin [Levaquin 500 mg Tablet] 500 mg PO DAILY 01/07/18 Lisinopril [Zestril] 40 mg PO DAILY 01/07/18 Megestrol Acetate 20 ml PO DAILY 01/07/18 Allergies/Adverse Reactions: aspirin [Aspirin] Adverse Reaction (Mild, Verified 01/07/18 11:46) dizzy codeine [Codeine] Adverse Reaction (Mild, Verified 01/07/18 11:46) n/v Review of Systems Constitutional: PRESENT: weight loss. ABSENT: fever(s), headache(s) Cardiovascular: ABSENT: chest pain, dyspnea on exertion, orthropnea Respiratory: PRESENT: cough, sputum. ABSENT: dyspnea Gastrointestinal: ABSENT: abdominal pain, constipation, diarrhea, hematochezia, melena, vomiting Genitourinary: ABSENT: dysuria, hematuria Integumentary: ABSENT: rash Neurological: PRESENT: memory loss Physical Exam Vital Signs: Temp Pulse Resp BP Pulse Ox 98.9 F 99 24 H 115/52 L 94 01/07/18 10:34 01/07/18 10:34 01/07/18 10:34 01/07/18 10:34 01/07/18 10:34 General appearance: PRESENT: no acute distress Mouth exam: PRESENT: moist, neck supple Neck exam: ABSENT: lymphadenopathy, tenderness, thyromegaly, tracheal deviation Respiratory exam: PRESENT: clear to auscultation madelin Cardiovascular exam: ABSENT: diastolic murmur, irregular rhythm, systolic murmur GI/Abdominal exam: ABSENT: mass, organolmegaly, tenderness Extremities exam: ABSENT: pedal edema Neurological exam: ABSENT: oriented to situation Psychiatric exam: PRESENT: appropriate affect Results Laboratory Results: Abnormal - 24 hr 01/07/18 01/07/18 01/07/18 13:46 13:46 14:08 WBC 13.4 H Hgb 11.7 L Hct 35.5 L RDW 16.7 H Plt Count 529 H Band Neutrophils % 2 L Metamyelocytes % 1 H Myelocytes % 1 H Abs Neuts (Manual) 10.2 H Chloride 108 H Carbon Dioxide 21 L BUN 21 H Est GFR (Non-Af Amer) 51 L Glucose 134 H Direct Bilirubin 0.5 H Urine Protein 100 H Ur Leukocyte Esterase LARGE H Impressions: Chest X-Ray 01/07/18 11:58 IMPRESSION: NO ACUTE RADIOGRAPHIC FINDING IN THE CHEST. Assessment & Plan - Diagnosis (1) Acute cystitis without hematuria Is this a current diagnosis for this admission?: Yes Plan: continue levaquin (2) Alzheimer's disease with late onset Qualifiers: Dementia behavioral disturbance: without behavioral disturbance Qualified Code(s): G30.1 - Alzheimer's disease with late onset; F02.80 - Dementia in other diseases classified elsewhere without behavioral disturbance; F02.80 - Dementia in other diseases classified elsewhere without behavioral disturbance; F02.80 - Dementia in other diseases classified elsewhere without behavioral disturbance Is this a current diagnosis for this admission?: Yes (3) Gait apraxia Is this a current diagnosis for this admission?: Yes - Inpatient Certification Based on my medical assessment, after consideration of the patient's comorbidities, presenting symptoms, or acuity I expect that the services needed warrant INPATIENT care.: No I certify that my determination is in accordance with my understanding of Medicare's requirements for reasonable and necessary INPATIENT services [42 CFR 412.3e].: No Medical Necessity: Failure to Improve With Outpatient Therapy, Significant Comorbidiites Make Outpatient Treatment Too Risky, Need Close Monitoring Due to Risk of Patient Decompensation, Need For IV Fluids, Need for IV Antibiotics, Risk of Complication if Not Cared For in Hospital, Risk of Diagnosis Which Will Require Inpatient Eval/Care/Monitoring Post Hospital Care: 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
[2018-01-07] MEDS: 1/2 NORMAL SALINE 1,000 ML IV PRN (19:55)
--- NOTE | 2018-01-07 21:34 | EKG REPORT ---
SEVERITY:- BORDERLINE ECG - SINUS RHYTHM NONSPECIFIC ANTEROSEPTAL T WAVE CHANGES. : Confirmed by: Avelino Parks MD 07-Jan-2018 21:33:59
[2018-01-08] MEDS ORDERED: INFLUENZA ADLT QUAD (36MOS+) 2017-18 VAC 0.5 ML SYR IM PRN (07:34)
--- NOTE | 2018-01-08 07:39 | PDOC PROGRESS REPORT ---
Subjective Progress Note for:: 01/08/18 Subjective:: no complaints. says sleeping a lot. No stool 3d. Reason For Visit: URINARY TRACT INFECTION Physical Exam Vital Signs: Temp Pulse Resp BP Pulse Ox 98.6 F 97 16 135/59 H 100 01/08/18 03:14 01/08/18 03:14 01/08/18 03:14 01/08/18 03:14 01/08/18 03:14 Intake & Output 01/06/18 01/07/18 01/08/18 07:59 07:59 07:59 Intake Total 950 Output Total 0 Balance 950 Weight 96 lb 12.527 oz General appearance: PRESENT: no acute distress Respiratory exam: PRESENT: clear to auscultation madelin Cardiovascular exam: ABSENT: diastolic murmur, irregular rhythm, systolic murmur GI/Abdominal exam: ABSENT: mass, organolmegaly, tenderness Extremities exam: ABSENT: pedal edema Neurological exam: ABSENT: oriented to situation Psychiatric exam: PRESENT: appropriate affect Results Laboratory Results: 01/07/18 15:00 Lactic Acid 1.4 Impressions: Chest X-Ray 01/07/18 11:58 IMPRESSION: NO ACUTE RADIOGRAPHIC FINDING IN THE CHEST. Assessment & Plan - Diagnosis (1) Acute cystitis without hematuria Is this a current diagnosis for this admission?: Yes Plan: culture pending but may not grow after levaquin at home. (2) Alzheimer's disease with late onset Qualifiers: Dementia behavioral disturbance: without behavioral disturbance Qualified Code(s): G30.1 - Alzheimer's disease with late onset; F02.80 - Dementia in other diseases classified elsewhere without behavioral disturbance; F02.80 - Dementia in other diseases classified elsewhere without behavioral disturbance; F02.80 - Dementia in other diseases classified elsewhere without behavioral disturbance Is this a current diagnosis for this admission?: Yes (3) Gait apraxia Is this a current diagnosis for this admission?: Yes
[2018-01-08] MEDS ORDERED: LUBIPROSTONE 24 MCG CAPSULE PO ONE (08:00)
[2018-01-08] MEDS ORDERED: ENOXAPARIN SODIUM INJ 40 MG/0.4 ML DISP.SYRIN SUBCUT SCH (10:00)
[2018-01-08] MEDS: ENOXAPARIN SODIUM INJ 30 MG/0.3 ML DISP.SYRIN SUBCUT SCH (10:06)
[2018-01-08] MEDS: LEVOFLOXACIN 500 MG TABLET PO SCH (10:06)
[2018-01-08] MEDS: 1/2 NORMAL SALINE 1,000 ML IV PRN (10:06)
[2018-01-08] MEDS: LUBIPROSTONE 24 MCG CAPSULE PO SCH (18:14)
[2018-01-09] MEDS: 1/2 NORMAL SALINE 1,000 ML IV PRN ×2 (01:07→18:36)
--- NOTE | 2018-01-09 06:47 | PDOC PROGRESS REPORT ---
Subjective Progress Note for:: 01/09/18 Subjective:: no complaints. was able to get a little food from home in her. Fluid intake was minimal. Reason For Visit: ACUTE CYSTITIS,UTI WITHOUT HEMATURIA,GAIT APRAXIA, Physical Exam Vital Signs: Temp Pulse Resp BP Pulse Ox 98.8 F 90 18 119/55 L 96 01/09/18 03:14 01/09/18 03:14 01/09/18 03:14 01/09/18 03:14 01/09/18 03:14 Intake & Output 01/07/18 01/08/18 01/09/18 07:59 07:59 07:59 Intake Total 990 Balance 990 Weight 89 lb 11.65 oz General appearance: PRESENT: no acute distress Respiratory exam: PRESENT: clear to auscultation madelin Cardiovascular exam: ABSENT: diastolic murmur, irregular rhythm, systolic murmur GI/Abdominal exam: ABSENT: mass, organolmegaly, tenderness Extremities exam: ABSENT: pedal edema Neurological exam: ABSENT: oriented to situation Psychiatric exam: PRESENT: appropriate affect Results Impressions: Chest X-Ray 01/07/18 11:58 IMPRESSION: NO ACUTE RADIOGRAPHIC FINDING IN THE CHEST. Assessment & Plan - Diagnosis (1) Acute cystitis without hematuria Is this a current diagnosis for this admission?: Yes Plan: urine growing 10k but had been on levaquin. (2) Alzheimer's disease with late onset Qualifiers: Dementia behavioral disturbance: without behavioral disturbance Qualified Code(s): G30.1 - Alzheimer's disease with late onset; F02.80 - Dementia in other diseases classified elsewhere without behavioral disturbance; F02.80 - Dementia in other diseases classified elsewhere without behavioral disturbance; F02.80 - Dementia in other diseases classified elsewhere without behavioral disturbance Is this a current diagnosis for this admission?: Yes Plan: unable or unwilling to eat and drink (3) Gait apraxia Is this a current diagnosis for this admission?: Yes (4) SIRS without acute organ dysfunction due to infectious process Is this a current diagnosis for this admission?: Yes Plan: wbc>12 p>90 on day 1 - Inpatient Certification Based on my medical assessment, after consideration of the patient's comorbidities, presenting symptoms, or acuity I expect that the services needed warrant INPATIENT care.: Yes I certify that my determination is in accordance with my understanding of Medicare's requirements for reasonable and necessary INPATIENT services [42 CFR 412.3e].: Yes Medical Necessity: Failure to Improve With Outpatient Therapy, Significant Comorbidiites Make Outpatient Treatment Too Risky, Need Close Monitoring Due to Risk of Patient Decompensation, Risk of Complication if Not Cared For in Hospital, Risk of Diagnosis Which Will Require Inpatient Eval/Care/Monitoring
[2018-01-09] MEDS: ENOXAPARIN SODIUM INJ 30 MG/0.3 ML DISP.SYRIN SUBCUT SCH (10:39)
[2018-01-09] MEDS: LUBIPROSTONE 24 MCG CAPSULE PO SCH ×2 (10:39→18:36)
[2018-01-09] MEDS: LEVOFLOXACIN 500 MG TABLET PO SCH (10:39)
--- NOTE | 2018-01-10 07:23 | PDOC PROGRESS REPORT ---
Subjective Progress Note for:: 01/10/18 Subjective:: No cough. Sat dropped to [address] eval pending. has decided on DNR: no cpr or vent. Reason For Visit: ACUTE CYSTITIS,UTI WITHOUT HEMATURIA,GAIT APRAXIA, Physical Exam Vital Signs: Temp Pulse Resp BP Pulse Ox 98.7 F 83 16 118/48 L 99 01/10/18 03:56 01/10/18 03:56 01/10/18 03:56 01/10/18 03:56 01/10/18 03:56 Intake & Output 01/08/18 01/09/18 01/10/18 07:59 07:59 07:59 Intake Total 1815 1737 Balance 1815 1737 Weight 89 lb 11.65 oz 90 lb 6.232 oz General appearance: PRESENT: no acute distress Respiratory exam: PRESENT: clear to auscultation madelin Cardiovascular exam: ABSENT: diastolic murmur, irregular rhythm, systolic murmur GI/Abdominal exam: ABSENT: mass, organolmegaly, tenderness Extremities exam: ABSENT: pedal edema Neurological exam: ABSENT: oriented to situation Psychiatric exam: PRESENT: appropriate affect Results Impressions: Chest X-Ray 01/07/18 11:58 IMPRESSION: NO ACUTE RADIOGRAPHIC FINDING IN THE CHEST. Assessment & Plan - Diagnosis (1) Acute cystitis without hematuria Is this a current diagnosis for this admission?: Yes Plan: 20k E coli resistant only amp and tcn. Day5 levaquin (2) Alzheimer's disease with late onset Qualifiers: Dementia behavioral disturbance: without behavioral disturbance Qualified Code(s): G30.1 - Alzheimer's disease with late onset; F02.80 - Dementia in other diseases classified elsewhere without behavioral disturbance; F02.80 - Dementia in other diseases classified elsewhere without behavioral disturbance; F02.80 - Dementia in other diseases classified elsewhere without behavioral disturbance Is this a current diagnosis for this admission?: Yes Plan: swallow eval (3) Gait apraxia Is this a current diagnosis for this admission?: Yes (4) SIRS without acute organ dysfunction due to infectious process Is this a current diagnosis for this admission?: Yes - Inpatient Certification Medical Necessity: Failure to Improve With Outpatient Therapy, Significant Comorbidiites Make Outpatient Treatment Too Risky, Need Close Monitoring Due to Risk of Patient Decompensation, Risk of Complication if Not Cared For in Hospital, Risk of Diagnosis Which Will Require Inpatient Eval/Care/Monitoring
[2018-01-10] MEDS: LUBIPROSTONE 24 MCG CAPSULE PO SCH ×2 (11:03→17:45)
[2018-01-10] MEDS: LEVOFLOXACIN 500 MG TABLET PO SCH (11:03)
[2018-01-10] MEDS: 1/2 NORMAL SALINE 1,000 ML IV PRN ×2 (11:04→23:54)
[2018-01-10] MEDS: ENOXAPARIN SODIUM INJ 30 MG/0.3 ML DISP.SYRIN SUBCUT SCH (11:04)
[2018-01-10 14:15] LABS: PATH REVIEW PATHOLOGIST REVIEWED
--- NOTE | 2018-01-11 07:24 | PDOC PROGRESS REPORT ---
Subjective Progress Note for:: 01/11/18 Subjective:: feels she will be ready for home tomorrow. She is just waking up. Reason For Visit: ACUTE CYSTITIS,UTI WITHOUT HEMATURIA,GAIT APRAXIA, Physical Exam Vital Signs: Temp Pulse Resp BP Pulse Ox 97.8 F 86 14 116/50 L 89 L 01/10/18 23:20 01/10/18 23:20 01/10/18 23:20 01/10/18 23:20 01/10/18 23:20 Intake & Output 01/09/18 01/10/18 01/11/18 07:59 07:59 07:59 Intake Total 1815 1737 1843 Balance 1815 1737 1843 Weight 89 lb 11.65 oz 90 lb 6.232 oz 89 lb 15.178 oz General appearance: PRESENT: no acute distress Respiratory exam: PRESENT: clear to auscultation madelin Cardiovascular exam: ABSENT: diastolic murmur, irregular rhythm, systolic murmur GI/Abdominal exam: ABSENT: mass, organolmegaly, tenderness Extremities exam: ABSENT: pedal edema Neurological exam: ABSENT: oriented to situation Psychiatric exam: PRESENT: appropriate affect Results Impressions: Chest X-Ray 01/07/18 11:58 IMPRESSION: NO ACUTE RADIOGRAPHIC FINDING IN THE CHEST. Assessment & Plan - Diagnosis (1) Acute cystitis without hematuria Is this a current diagnosis for this admission?: Yes Plan: d6 sharonda (2) Alzheimer's disease with late onset Qualifiers: Dementia behavioral disturbance: without behavioral disturbance Qualified Code(s): G30.1 - Alzheimer's disease with late onset; F02.80 - Dementia in other diseases classified elsewhere without behavioral disturbance; F02.80 - Dementia in other diseases classified elsewhere without behavioral disturbance; F02.80 - Dementia in other diseases classified elsewhere without behavioral disturbance Is this a current diagnosis for this admission?: Yes Plan: resume home health tomorrow (3) Gait apraxia Is this a current diagnosis for this admission?: Yes Plan: home by ambulance tomorrow (4) SIRS without acute organ dysfunction due to infectious process Is this a current diagnosis for this admission?: Yes - Inpatient Certification Medical Necessity: Failure to Improve With Outpatient Therapy, Significant Comorbidiites Make Outpatient Treatment Too Risky, Need Close Monitoring Due to Risk of Patient Decompensation, Need For IV Fluids, Risk of Complication if Not Cared For in Hospital, Risk of Diagnosis Which Will Require Inpatient Eval/Care/ Monitoring
[2018-01-11] MEDS: LUBIPROSTONE 24 MCG CAPSULE PO SCH ×2 (09:16→18:08)
[2018-01-11] MEDS: LEVOFLOXACIN 500 MG TABLET PO SCH (09:16)
[2018-01-11] MEDS: ENOXAPARIN SODIUM INJ 30 MG/0.3 ML DISP.SYRIN SUBCUT SCH (09:18)
--- NOTE | 2018-01-12 07:32 | PDOC DISCHARGE SUMMARY ---
General - Admit/Disc Date/PCP Admission Date/Primary Care Provider: 01/08/18 14:28 WENDY PALOMINO MD Discharge Date: 01/12/18 - Discharge Diagnosis (1) Acute cystitis without hematuria Is this a current diagnosis for this admission?: Yes (2) Alzheimer's disease with late onset Is this a current diagnosis for this admission?: Yes (3) Gait apraxia Is this a current diagnosis for this admission?: Yes (4) SIRS without acute organ dysfunction due to infectious process Is this a current diagnosis for this admission?: Yes - Additional Information Resuscitation Status: Full Code Discharge Diet: Regular Discharge Activity: Bedrest Prescriptions: Cyanocobalamin (Vitamin B-12) [B-12] 2,500 mcg SL DAILY #90 tab.subl Home Medications: Cyanocobalamin (Vitamin B-12) [B-12] 2,500 mcg SL DAILY #90 tab.subl 01/12/18 History of Present Illness Patient complains of: bp88 History of Present Illness: JORGE GARCIA is a 82 year old female with 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 3w bedbound. 3d days cough. 2d ago visiting nurse heard rales requested antibiotic. I sent levaquin. She had 2 doses. BP88 according to PT today. EMS brought here. BP 115 here. Hospital Course Hospital Course: Urine grew 20k E coli sensitive except amp and tcn. She resumed and finished 7d levaquin. Intake remained poor, but worked with outside food and pedialyte as he does at home. She remains bedbound with poor [facility] prognosis. He knows this but is not ready for DNR. She did not need to resume bp meds. Physical Exam Vital Signs: Temp Pulse Resp BP Pulse Ox 98.5 F 98 16 123/67 94 01/12/18 04:00 01/12/18 04:00 01/12/18 04:00 01/12/18 04:00 01/12/18 04:00 Intake & Output 01/10/18 01/11/18 01/12/18 07:59 07:59 07:59 Intake Total 1737 1843 110 Balance 1737 1843 110 Weight 90 lb 6.232 oz 89 lb 15.178 oz General appearance: PRESENT: no acute distress Respiratory exam: PRESENT: clear to auscultation madelin Cardiovascular exam: ABSENT: diastolic murmur, irregular rhythm, systolic murmur GI/Abdominal exam: ABSENT: mass, organolmegaly, tenderness Extremities exam: ABSENT: pedal edema Neurological exam: ABSENT: oriented to situation Psychiatric exam: PRESENT: appropriate affect Results Laboratory Results: Labs- Last Values WBC 13.4 10^3/uL (4.0-10.5) H 01/07/18 13:46 RBC 3.77 10^6/uL (3.72-5.28) 01/07/18 13:46 Hgb 11.7 g/dL (12.0-15.5) L 01/07/18 13:46 Hct 35.5 % (36.0-47.0) L 01/07/18 13:46 MCV 94 fl (80-97) 01/07/18 13:46 MCH 31.1 pg (27.0-33.4) 01/07/18 13:46 MCHC 33.1 g/dL (32.0-36.0) 01/07/18 13:46 RDW 16.7 % (11.5-14.0) H 01/07/18 13:46 Plt Count 529 10^3/uL (150-450) H 01/07/18 13:46 Total Counted 100 01/07/18 13:46 Seg Neutrophils % Not Reportable 01/07/18 13:46 Seg Neuts % (Manual) 72 % (42-78) 01/07/18 13:46 Band Neutrophils % 2 % (3-5) L 01/07/18 13:46 Lymphocytes % Not Reportable 01/07/18 13:46 Lymphocytes % (Manual) 17 % (13-45) 01/07/18 13:46 Monocytes % Not Reportable 01/07/18 13:46 Monocytes % (Manual) 6 % (3-13) 01/07/18 13:46 Eosinophils % Not Reportable 01/07/18 13:46 Eosinophils % (Manual) 1 % (0-6) 01/07/18 13:46 Basophils % Not Reportable 01/07/18 13:46 Basophils % (Manual) 0 % (0-2) 01/07/18 13:46 Metamyelocytes % 1 % (0) H 01/07/18 13:46 Myelocytes % 1 % (0) H 01/07/18 13:46 Absolute Neutrophils Not Reportable 01/07/18 13:46 Abs Neuts (Manual) 10.2 10^3/uL (1.7-8.2) H 01/07/18 13:46 Absolute Lymphocytes Not Reportable 01/07/18 13:46 Abs Lymphs (Manual) 2.3 10^3/uL (0.5-4.7) 01/07/18 13:46 Absolute Monocytes Not Reportable 01/07/18 13:46 Abs Monocytes (Manual) 0.8 10^3/uL (0.1-1.4) 01/07/18 13:46 Absolute Eosinophils Not Reportable 01/07/18 13:46 Absolute Eos (Manual) 0.1 10^3/uL (0.0-0.6) 01/07/18 13:46 Absolute Basophils Not Reportable 01/07/18 13:46 Abs Basophils (Manual) 0.0 10^3/uL (0.0-0.2) 01/07/18 13:46 Toxic Granulation 1+ 01/07/18 13:46 Toxic Vacuolation PRESENT 01/07/18 13:46 Platelet Comment INCREASED 01/07/18 13:46 Hypochromasia SLIGHT 01/07/18 13:46 Anisocytosis 1+ 01/07/18 13:46 Sodium 139.0 mmol/L (137-145) 01/07/18 13:46 Potassium 4.6 mmol/L (3.6-5.0) 01/07/18 13:46 Chloride 108 mmol/L (98-107) H 01/07/18 13:46 Carbon Dioxide 21 mmol/L (22-30) L 01/07/18 13:46 Anion Gap 10 (5-19) 01/07/18 13:46 BUN 21 mg/dL (7-20) H 01/07/18 13:46 Creatinine 1.03 mg/dL (0.52-1.25) 01/07/18 13:46 Est GFR ( Amer) > 60 (>60) 01/07/18 13:46 Est GFR (Non-Af Amer) 51 (>60) L 01/07/18 13:46 Glucose 134 mg/dL (75-110) H 01/07/18 13:46 Lactic Acid 1.4 mmol/L (0.7-2.1) 01/07/18 15:00 Calcium 9.4 mg/dL (8.4-10.2) 01/07/18 13:46 Total Bilirubin 0.5 mg/dL (0.2-1.3) 01/07/18 13:46 Direct Bilirubin 0.5 mg/dL (0.0-0.4) H 01/07/18 13:46 Neonat Total Bilirubin Not Reportable 01/07/18 13:46 Neonat Direct Bilirubin Not Reportable 01/07/18 13:46 Neonat Indirect Bili Not Reportable 01/07/18 13:46 AST 22 U/L (14-36) 01/07/18 13:46 ALT 32 U/L (9-52) 01/07/18 13:46 Alkaline Phosphatase 79 U/L (38-126) 01/07/18 13:46 Troponin I < 0.012 ng/mL 01/07/18 13:46 Total Protein 7.4 g/dL (6.3-8.2) 01/07/18 13:46 Albumin 3.7 g/dL (3.5-5.0) 01/07/18 13:46 Urine Color YELLOW 01/07/18 14:08 Urine Appearance SLIGHTLY-CLOUDY 01/07/18 14:08 Urine pH 7.0 (5.0-9.0) 01/07/18 14:08 Ur Specific [place] 1.013 01/07/18 14:08 Urine Protein 100 mg/dL (NEGATIVE) H 01/07/18 14:08 Urine Glucose (UA) NEGATIVE mg/dL (NEGATIVE) 01/07/18 14:08 Urine Ketones NEGATIVE mg/dL (NEGATIVE) 01/07/18 14:08 Urine Blood NEGATIVE (NEGATIVE) 01/07/18 14:08 Urine Nitrite NEGATIVE (NEGATIVE) 01/07/18 14:08 Urine Bilirubin NEGATIVE (NEGATIVE) 01/07/18 14:08 Urine Urobilinogen NEGATIVE mg/dL (<2.0) 01/07/18 14:08 Ur Leukocyte Esterase LARGE (NEGATIVE) H 01/07/18 14:08 Urine WBC (Auto) 13 /HPF 01/07/18 14:08 Urine RBC (Auto) 1 /HPF 01/07/18 14:08 Urine Bacteria (Auto) TRACE /HPF 01/07/18 14:08 Squamous Epi Cells Auto <1 /HPF 01/07/18 14:08 Urine Mucus (Auto) RARE /LPF 01/07/18 14:08 Urine Ascorbic Acid NEGATIVE (NEGATIVE) 01/07/18 14:08 Slides for Path Review PATHOLOGIST REVIEWED 01/07/18 13:46 Impressions: Chest X-Ray 01/07/18 11:58 IMPRESSION: NO ACUTE RADIOGRAPHIC FINDING IN THE CHEST. Qualifiers - * PATEINT BEING DISCHARGED WITH ANY OF THE FOLLOWING DIAGNOSIS?: No Plan Discharge Plan: [facility].
[2018-01-12 08:42] VITALS: BP 123/67
== END 2018-01-12 09:25 | disposition home health service (06) | DRG 690 ==
LOC: ER 10:22 → INTOOBSV 14:58 → EH 14:58 → 3S 23:15 → OBSVTOIN 01-08 14:28 → 3S 01-09 18:50
PROVIDERS: ADMIT Family Medicine; ATTEND Family Medicine
DX: N30.00 Acute cystitis without hematuria (principal); R48.2 Apraxia; F02.80 Dementia in other diseases classified elsewhere, unspecified severity, without behavioral disturbance, psychotic disturbance, mood disturbance, and anxiety; B96.20 Unspecified Escherichia coli [E. coli] as the cause of diseases classified elsewhere; E78.00 Pure hypercholesterolemia, unspecified; I10 Essential (primary) hypertension; M19.90 Unspecified osteoarthritis, unspecified site; G30.1 Alzheimer's disease with late onset; E86.0 Dehydration; Z90.710 Acquired absence of both cervix and uterus; Z87.891 Personal history of nicotine dependence; Z79.899 Other long term (current) drug therapy; Z88.6 Allergy status to analgesic agent; Z82.49 Family history of ischemic heart disease and other diseases of the circulatory system
CPT/HCPCS: 36415; 71045; 80053; 81001; 83605; 84484; 85025; 87040; 87086; 87088; 87186; 93005; 93010; 99285; G0378; G8996-GN; G8997-GN; G8998-GN; J0456; J0696; J1650; J3490; J7120